=== PATIENT | male | born 1950 | race Caucasian/White ===

== ENCOUNTER 2018-06-16 18:02 | Inpatient (IN) | payer OTHER, MEDICARE ==
[~2018-06-16] VITALS: Ht 172.7 cm; Wt 83.9 kg
[2018-06-16] MEDS ORDERED: ONDANSETRON 4 MG/2 ML VIAL ONE (18:59)
[2018-06-16] MEDS ORDERED: MORPHINE SULFATE 4 MG/1 ML DISP.SYRIN ONE (18:59)
[2018-06-16] MEDS ORDERED: ONDANSETRON IV *ER 4 MG/2 ML VIAL IV ONE (19:00)
[2018-06-16] MEDS ORDERED: MORPHINE SULFATE 2 MG/1 ML DISP.SYRIN IV ONE (19:00)
[2018-06-16] MEDS ORDERED: VANCOMYCIN IV 200 ML ONE (19:00)
[2018-06-16] MEDS ORDERED: VANCOMYCIN IV 1,000 MG in IV DEXTROSE 5% 250 ML IV ONE (19:00)
--- NOTE | 2018-06-16 19:12 | NUR ---
SBAR to ABBIE Peña, still for admission to 2nd floor@this time
--- NOTE | 2018-06-16 19:20 | NUR ---
PT IN BED RESTING QUIETLY WITH PT'S DAUGHTER AT BEDSIDE. PT IS AAOX4. PT IS CALM AND COOPERATIVE. PT IS POSITIONED FOR COMFORT. UPON INITIAL ASSESSMENT, SKIN BREAKDOWN, MILD SWELLING AND DISCOLORATION NOTED ON TOES OF LEFT FOOT. PAIN AT LEVEL 4. NO SIGNS OF DISTRESS WITNESSED AT THIS TIME.
[2018-06-16 19:23] LABS: BASOPHILS # (AUTO) 0.1 K/uL (0.0-8.0); BASOPHILS % (AUTO) 0.4 % (0.0-2.0); EOSINOPHILS % (AUTO) 0.1 % (0.0-7.0); HEMATOCRIT 28.4 % (36.7-47.1); HEMOGLOBIN 9.8 g/dL (12.5-16.3); LYMPHOCYTES # (AUTO) 1.2 K/uL (20.0-40.0); LYMPHOCYTES % (AUTO) 9.2 % (20.5-51.5); MEAN CORPUSCULAR HEMOGLOBIN 29.9 uug (23.8-33.4); MEAN CORPUSCULAR HGB CONC 35 g/dL (32.5-36.3); MEAN CORPUSCULAR VOLUME 86.3 fL (73.0-96.2); MONOCYTES % (AUTO) 7.6 % (0.0-11.0); NEUTROPHILS # (AUTO) 10.4 K/uL (1.8-8.9); NEUTROPHILS % (AUTO) 82.7 % (38.5-71.5); PLATELET COUNT (AUTO) 325 K/uL (152-348); RED BLOOD CELL COUNT(AUTO) 3.29 MIL/uL (4.06-5.63); WHITE BLOOD COUNT (AUTO) 12.6 K/uL (3.6-10.2)
[2018-06-16 19:31] LABS: CREATININE 1.5 mg/dL (0.6-1.3); POTASSIUM 3.6 mmol/L (3.5-5.1)
[2018-06-16 19:47] LABS: BILIRUBIN,DIRECT 0.1 mg/dL (0.0-0.2); BILIRUBIN,TOTAL 0.5 mg/dL (0.2-1.0); TOTAL PROTEIN, SERUM 7.4 g/dL (6.4-8.2)
--- NOTE | 2018-06-16 20:30 | NUR ---
REPORT GIVEN TO [facility] NURSE, MASON
--- NOTE | 2018-06-16 20:55 | NUR ---
Pt. admitted to [facility], under care of Dr. NI Belongs List completed
[2018-06-16 21:10] VITALS: BP 155/65
[2018-06-16] MEDS ORDERED: ZOLPIDEM 5 MG TABLET PO PRN (21:15)
[2018-06-16] MEDS ORDERED: INSULIN REGULAR, HUMAN 300 UNIT/3 ML VIAL SQ PRN (21:15)
[2018-06-16] MEDS ORDERED: CLONIDINE HCL 0.1 MG TABLET PO PRN (21:15)
[2018-06-16] MEDS ORDERED: DEXTROSE 50% 50 ML DISP.SYRIN IV PRN (21:15)
[2018-06-16] MEDS ORDERED: MORPHINE SULFATE 2 MG/1 ML DISP.SYRIN IV PRN (21:15)
[2018-06-16] MEDS ORDERED: ONDANSETRON 4 MG/2 ML VIAL IV PRN (21:15)
[2018-06-16] MEDS ORDERED: ENOXAPARIN SODIUM 30 MG/0.3 ML DISP.SYRIN SUBCUT SCH (21:15)
[2018-06-16] MEDS ORDERED: CLIN300C11 PO (21:22)
[2018-06-16] MEDS ORDERED: MUPI22OI2 TP (21:22)
[2018-06-16] MEDS ORDERED: ROSU20TA PO (21:22)
[2018-06-16] MEDS ORDERED: ACET250T9 PO (21:22)
[2018-06-16] MEDS ORDERED: LISI10TA5 PO (21:23)
[2018-06-16] MEDS ORDERED: LATA2.5D2 EACHEYE (21:23)
[2018-06-16] MEDS ORDERED: PILO15DR6 LEFTEYE (21:23)
[2018-06-16] MEDS ORDERED: BRIM5DRO3 OP (21:23)
[2018-06-16] MEDS ORDERED: ASPI-605 PO (21:23)
[2018-06-16] MEDS ORDERED: GLIP1TAB6 PO (21:23)
[2018-06-16] MEDS ORDERED: LINA5TAB PO (21:23)
[2018-06-16] MEDS ORDERED: EZET10TA13 PO (21:23)
[2018-06-16] MEDS ORDERED: HALO15OI4 TP (21:23)
[2018-06-16] MEDS ORDERED: IBUP-1953 PO (21:24)
--- NOTE | 2018-06-16 22:00 | NUR ---
Per pt Bactroban ordered for foot by primary physician on 06/15/18.
[2018-06-16] MEDS ORDERED: PIPERACILLIN/TAZO 2.25 GM VIAL ONE (23:14)
[2018-06-16] MEDS: ENOXAPARIN SODIUM 40 MG/0.4 ML DISP.SYRIN SQ SCH (23:45)
[2018-06-17] MEDS ORDERED: PIPERACILLIN SODIUM/TAZO 3.375 GM VIAL ONE (00:06)
[2018-06-17 00:09] VITALS: BP 114/43
[2018-06-17] MEDS: TAZOBACTAM IV SCH ×6 (00:35→23:19)
[2018-06-17] MEDS: PIPERACILLIN SODIUM IV SCH ×6 (00:35→23:19)
[2018-06-17] MEDS: PREMIXED IV SCH ×6 (00:35→23:19)
[2018-06-17 04:52] VITALS: BP 120/50
[2018-06-17 05:57] LABS: BILIRUBIN,TOTAL 0.6 mg/dL (0.2-1.0); CREATININE 1.4 mg/dL (0.6-1.3); MAGNESIUM 1.6 mg/dL (1.8-2.4); PHOSPHOROUS 2.8 mg/dL (2.5-4.9); POTASSIUM 3.8 mmol/L (3.5-5.1); TOTAL PROTEIN, SERUM 6.7 g/dL (6.4-8.2)
--- NOTE | 2018-06-17 05:59 | NUR ---
PT SLEPT WELL THROUGH THE NIGHT AND WAS EASILY AWOKEN, PT DENIED HAVING ANY PAIN OR DIFFICULTY BREATHING. PT'S FOOT IS SLIGHTLY LESS SWOLLEN THIS MORNING COMPARED TO WHEN HE WAS ADMITTED. DRESSING IS DRY CLEAN AND INTACT. PT IS SINUS RHYTHM ON THE MONITOR. ALL NEEDS MET, SAFETY MEASURES ARE IN PLACE, CALL LIGHT WITHIN REACH, BED ALARM IS ON.
[2018-06-17 06:05] LABS: BASOPHILS # (AUTO) 0.1 K/uL (0.0-8.0); BASOPHILS % (AUTO) 0.5 % (0.0-2.0); EOSINOPHILS # (AUTO) 0.2 K/uL (0.0-0.7); EOSINOPHILS % (AUTO) 1.6 % (0.0-7.0); HEMATOCRIT 26.9 % (36.7-47.1); HEMOGLOBIN 9.5 g/dL (12.5-16.3); LYMPHOCYTES # (AUTO) 1.6 K/uL (20.0-40.0); LYMPHOCYTES % (AUTO) 17.2 % (20.5-51.5); MEAN CORPUSCULAR HEMOGLOBIN 30.6 uug (23.8-33.4); MEAN CORPUSCULAR HGB CONC 35 g/dL (32.5-36.3); MEAN CORPUSCULAR VOLUME 86.4 fL (73.0-96.2); MONOCYTES % (AUTO) 10.2 % (0.0-11.0); NEUTROPHILS # (AUTO) 6.6 K/uL (1.8-8.9); NEUTROPHILS % (AUTO) 70.5 % (38.5-71.5); PLATELET COUNT (AUTO) 287 K/uL (152-348); RED BLOOD CELL COUNT(AUTO) 3.12 MIL/uL (4.06-5.63); WHITE BLOOD COUNT (AUTO) 9.4 K/uL (3.6-10.2)
[2018-06-17] MEDS: PANTOPRAZOLE SODIUM 40 MG TABLET.DR PO SCH (06:10)
[2018-06-17] MEDS ORDERED: BLOOD SUGAR DIAGNOSTIC 1 EACH STRIP VI SCH (07:30)
[2018-06-17 07:55] LABS: THYROID STIMULATING HORMONE 2.73 mIU/mL (0.358-3.740)
[2018-06-17] MEDS ORDERED: MORPHINE SULFATE 4 MG/1 ML DISP.SYRIN IV PRN (08:15)
[2018-06-17] MEDS: ASPIRIN EC 81 MG TABLET.DR PO SCH (08:36)
[2018-06-17] MEDS: ACIDOPHILUS/BULGARICUS CHEW TAB PO SCH ×2 (08:36→16:10)
[2018-06-17] MEDS: ASCORBIC ACID 500 MG TABLET PO SCH (08:36)
[2018-06-17] MEDS: EZETIMIBE 10 MG TABLET PO SCH (08:36)
[2018-06-17] MEDS: LINAGLIPTIN 5 MG TABLET PO SCH (08:36)
[2018-06-17] MEDS: MULTIVITAMINS,THERAPEUTIC TABLET PO SCH (08:36)
[2018-06-17] MEDS: ZINC SULFATE 220 MG CAPSULE PO SCH (08:36)
[2018-06-17] MEDS ORDERED: PILOCARPINE 1% OPHT DROP 15 ML BOTTLE LEFTEYE SCH ×2 (09:00)
[2018-06-17] MEDS ORDERED: ACETAzolamide 250 MG TABLET PO SCH (09:00)
[2018-06-17] MEDS ORDERED: MUPIROCIN 2% OINT 22 GM TUBE TP SCH (09:00)
[2018-06-17] MEDS ORDERED: BRIMONIDINE-P 0.1% OPHTH DROP 5 ML DROPS OP SCH ×2 (09:00)
[2018-06-17] MEDS ORDERED: DEXTROSE 50% 50 ML DISP.SYRIN IV PRN (10:30)
[2018-06-17] MEDS: MAGNESIUM SULFATE/D5W 100 ML IV SCH ×2 (10:47→15:56)
[2018-06-17] MEDS: FERROUS SULFATE 325 MG TABEC PO SCH ×2 (10:52→21:33)
[2018-06-17 11:02] VITALS: BP 125/42
[2018-06-17] MEDS ORDERED: BRIM10DR6 EACHEYE (11:53)
[2018-06-17] MEDS ORDERED: PILO15DR36 OP (11:58)
[2018-06-17] MEDS: MUPIROCIN 2% OINT 22 GM TUBE TP SCH ×3 (12:00→21:34)
[2018-06-17] MEDS ORDERED: VANCOMYCIN IV 1,500 MG in IV DEXTROSE 5% 500 ML IV ONE (12:00)
[2018-06-17] MEDS: BLOOD SUGAR DIAGNOSTIC 1 EACH STRIP VI SCH ×3 (12:08→21:30)
[2018-06-17] MEDS: INSULIN REGULAR, HUMAN 300 UNIT/3 ML VIAL SQ PRN ×2 (12:14→17:01)
--- NOTE | 2018-06-17 12:17 | NUR ---
CLINICAL PHARMACY NOTE: VANCOMYCIN PHARMACY TO DOSE Subjective: To start vancomycin in this 68 y/o male for cellulitis Objective: weight 83.9 kg height 172.7 cm BUN 19 Scr 1.4 Wbc 9.4 temp 98.4 Vanco random level: 7.5 (with am labs) Assessment/Plan Due to unstable srcr, will dose by fall off level. Patient received vanco 1gm IVPB x1 in ED on 06/16 at 1900. Since vanco random level is 7.5 mcg/ml with am labs, will give vanco 1500mg IVPB x1 today. Will check srcr in am & decide when to order next random level for further dosing. Will follow
[2018-06-17] MEDS: PILOCARPINE 4% LEFTEYE SCH ×3 (13:00→21:34)
--- NOTE | 2018-06-17 15:15 | NUR ---
PATIENT TRANSPORTED TO RADIOLOGY VIA WHEELCHAIR. PT ALERT, IN NO DISTRESS.
[2018-06-17 15:50] VITALS: BP 120/41
--- NOTE | 2018-06-17 16:00 | NUR ---
RN BACK FROM LUNCH BREAK, PER STAFF, PATIENT ARRIVED FROM RADIOLOGY AT 1545. PT ALERT, RESTING IN BED.
[2018-06-17 16:19] LABS: *BILIRUBIN,URIN NEGATIVE (NEGATIVE); *BLOOD, URINE NEGATIVE (NEGATIVE); *CLARITY,URINE CLEAR (CLEAR); *COLOR,URINE YELLOW (YELLOW); *KETONES,URINE NEGATIVE (NEGATIVE); *PROTEIN,URINE TRACE (NEGATIVE); *UROBILINOGEN,URINE 0.2 E.U./dl (NORMAL); LEUKOCYTE ESTERASE ,URINE NEGATIVE (NEGATIVE); NITRITE, URINE NEGATIVE (NEGATIVE); UGLUCOSE NEGATIVE (NEGATIVE)
[2018-06-17 16:27] LABS: *URINE TOTAL PROTEIN RANDOM 44.3 mg/dL (<150/24HR)
[2018-06-17 16:34] LABS: COARSE GRANULAR CASTS,URINE 0-3 /LPF; MUCUS,URINE MODERATE /LPF (0-FEW); URINE AMORPHOUS PHOSPHATES FEW /HPF; WBC,URINE 0-3 /HPF (0-3)
--- NOTE | 2018-06-17 17:51 | NUR ---
PATIENT RESTING IN BED, IN NO DISTRESS. PATIENT IS PLEASANT AND APPRECIATIVE. LEFT FOOT NOTED WITH SWELLING AND REDNESS, SKIN CARE PROVIDED, PENDING WOUND CARE CONSULT. IV ANTIBIOTICS ADMINISTERED ORDERED, NO S/S OF ADVERSE REACTION NOTED. ACCUCHECKS DONE ORDERED, NO S/S OF HYPO/HYPERGLYCEMIA NOTED. ASSISTED PATIENT WITH TOILETING NEEDS. SAFETY MEASURES IN PLACE.
[2018-06-17 19:00] VITALS: BP 107/44
[2018-06-17] MEDS: ENOXAPARIN SODIUM 40 MG/0.4 ML DISP.SYRIN SQ SCH (21:32)
[2018-06-17] MEDS: INSULIN REGULAR, HUMAN 300 UNITS/3 ML VIAL SQ PRN (21:32)
[2018-06-17] MEDS: DOCUSATE SODIUM 100 MG CAPSULE PO SCH (21:33)
[2018-06-18] VITALS: BP 106/47
[2018-06-18 04:00] VITALS: BP 125/58
[2018-06-18 05:47] LABS: BASOPHILS # (AUTO) 0.1 K/uL (0.0-8.0); BASOPHILS % (AUTO) 0.9 % (0.0-2.0); EOSINOPHILS # (AUTO) 0.2 K/uL (0.0-0.7); EOSINOPHILS % (AUTO) 1.9 % (0.0-7.0); HEMOGLOBIN 10.4 g/dL (12.5-16.3); LYMPHOCYTES # (AUTO) 1.1 K/uL (20.0-40.0); LYMPHOCYTES % (AUTO) 12.9 % (20.5-51.5); MEAN CORPUSCULAR HEMOGLOBIN 30.3 uug (23.8-33.4); MEAN CORPUSCULAR HGB CONC 35 g/dL (32.5-36.3); MEAN CORPUSCULAR VOLUME 87.4 fL (73.0-96.2); MONOCYTES # (AUTO) 0.8 K/uL (2.0-10.0); MONOCYTES % (AUTO) 8.7 % (0.0-11.0); NEUTROPHILS # (AUTO) 6.7 K/uL (1.8-8.9); NEUTROPHILS % (AUTO) 75.6 % (38.5-71.5); PLATELET COUNT (AUTO) 320 K/uL (152-348); RED BLOOD CELL COUNT(AUTO) 3.43 MIL/uL (4.06-5.63); WHITE BLOOD COUNT (AUTO) 8.8 K/uL (3.6-10.2)
[2018-06-18 06:10] LABS: BILIRUBIN,TOTAL 0.4 mg/dL (0.2-1.0); CREATININE 1.5 mg/dL (0.6-1.3); PHOSPHOROUS 3.4 mg/dL (2.5-4.9); POTASSIUM 3.7 mmol/L (3.5-5.1)
[2018-06-18] MEDS: TAZOBACTAM IV SCH ×4 (06:26→23:55)
[2018-06-18] MEDS: PIPERACILLIN SODIUM IV SCH ×4 (06:26→23:55)
[2018-06-18] MEDS: PANTOPRAZOLE SODIUM 40 MG TABLET.DR PO SCH (06:26)
[2018-06-18] MEDS: PREMIXED IV SCH ×4 (06:26→23:55)
[2018-06-18] MEDS: BLOOD SUGAR DIAGNOSTIC 1 EACH STRIP VI SCH ×4 (06:38→20:49)
[2018-06-18] MEDS ORDERED: GADODIAMIDE 2.5 MMOL/5 ML VIAL ONE (07:53)
[2018-06-18] MEDS ORDERED: GADODIAMIDE 5 MMOL/10 ML VIAL ONE (07:53)
[2018-06-18] MEDS: ZINC SULFATE 220 MG CAPSULE PO SCH (09:16)
[2018-06-18] MEDS: ACIDOPHILUS/BULGARICUS CHEW TAB PO SCH ×2 (09:16→16:36)
[2018-06-18] MEDS: ASPIRIN EC 81 MG TABLET.DR PO SCH (09:16)
[2018-06-18] MEDS: MULTIVITAMINS,THERAPEUTIC TABLET PO SCH (09:17)
[2018-06-18] MEDS: EZETIMIBE 10 MG TABLET PO SCH (09:17)
[2018-06-18] MEDS: LINAGLIPTIN 5 MG TABLET PO SCH (09:17)
[2018-06-18] MEDS: ASCORBIC ACID 500 MG TABLET PO SCH (09:17)
[2018-06-18] MEDS: FERROUS SULFATE 325 MG TABEC PO SCH ×2 (09:18→20:49)
[2018-06-18] MEDS: MUPIROCIN 2% OINT 22 GM TUBE TP SCH ×2 (09:19→20:48)
[2018-06-18] MEDS: PILOCARPINE 4% LEFTEYE SCH ×4 (09:22→20:48)
--- NOTE | 2018-06-18 09:30 | NUR ---
PT ALERT ORIENTED X 4, RECEIVED CONSENT FOR DEBRIDEMENT. SWOLLEN LEFT FOOT, 4TH TOE RED AND BLACK. PT TOLERATED DEBRIDEMENT BY DOCTOR WALLACE, PLATE SHOP HELPER. WOUND CARE DRESSING DONE BY DOCTOR WALLACE.
[2018-06-18 11:30] VITALS: BP 150/67
--- NOTE | 2018-06-18 12:00 | NUR ---
PT ALERT AND ORIENTED X4. PT PICKED UP BY EMT TO [facility] FOR MRI. MRI CHECKLIST DONE. PT IV SHOWS NO SIGNS OF SWELLING AND REDNESS. IV PATENT. 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
[2018-06-18] MEDS: INSULIN REGULAR, HUMAN 300 UNIT/3 ML VIAL SQ PRN ×2 (12:04→16:36)
--- NOTE | 2018-06-18 12:33 | NUR ---
CLINICAL PHARMACY NOTE: VANCOMYCIN PHARMACY TO DOSE Subjective: To continue vancomycin in this 68 y/o male for cellulitis Objective: weight 83.9 kg height 172.7 cm BUN 17 Scr 1.5 Wbc 8.8 temp 97.9 Vanco random level: 9.9 (drawn at noon) Assessment/Plan Since srcr has been stable around 1.4-1.5, will start vanco 1250mg IVPB q22h for predicted vanco trough level of 15.5 mcg/ml at steady state. 1st dose is due today at 1300. Plan to draw vanco trough level before 4th dose (not yet ordered). Will monitor srcr & adjust the dose if needed. Will follow
--- NOTE | 2018-06-18 12:55 | NUR ---
WOUND CARE CONSULT WOUND CARE RECEIVED CONSULT FOR OPEN WOUND ON LEFT TOES. WOUND CARE WILL DEFER CONSULT AND ALL TREATMENT PLANS TO PODIATRY PODIATRY IS CURRENTLY FOLLOWING. PATIENT WITH RADHA A 21. WILL SEE PRN.
[2018-06-18] MEDS ORDERED: VANCOMYCIN IV 1,250 MG in IV DEXTROSE 5% 500 ML IV SCH (13:00)
[2018-06-18 15:15] VITALS: BP 135/94
[2018-06-18] MEDS ORDERED: hydrALAZINE HCL 25 MG TABLET PO PRN (16:15)
--- NOTE | 2018-06-18 17:00 | NUR ---
PT ARRIVED BACK FROM MRI. VITAL SIGNS STABLE.
--- NOTE | 2018-06-18 18:40 | NUR ---
PT NO ACUTE DISTRESS. PT DENIES ANY COMPLAINTS OF PAIN.
[2018-06-18 19:00] VITALS: BP 116/54
[2018-06-18] MEDS: ATORVASTATIN 40 MG TABLET PO SCH (20:49)
[2018-06-18] MEDS: DOCUSATE SODIUM 100 MG CAPSULE PO SCH (20:49)
[2018-06-18] MEDS: INSULIN REGULAR, HUMAN 300 UNITS/3 ML VIAL SQ PRN (20:58)
[2018-06-18] MEDS: ENOXAPARIN SODIUM 40 MG/0.4 ML DISP.SYRIN SQ SCH (20:58)
--- NOTE | 2018-06-18 21:46 | NUR ---
Received pt at the beginning of shift resting in bed. AAO x4. Family was at bedside. Farsi speaking, able to make needs known. All meds given as ordered. Accucheck 165, insulin coverage given. No acute distress noted. No c/o pain or discomfort. Safety measures maintained. Call light and personal belongings within reach. Will continue to monitor.
[2018-06-19 04:00] VITALS: BP 117/45
[2018-06-19] MEDS: TAZOBACTAM IV SCH ×4 (05:11→23:15)
[2018-06-19] MEDS: PIPERACILLIN SODIUM IV SCH ×4 (05:11→23:15)
[2018-06-19] MEDS: PREMIXED IV SCH ×4 (05:11→23:15)
--- NOTE | 2018-06-19 05:17 | NUR ---
Pt slept comfortably t/o the night. No BM yet, assisted to the bathroom as needed. Compliant with plan of care. Morning vital sign stable. All needs assisted to promptly. Will continue to monitor.
[2018-06-19 06:16] LABS: BASOPHILS # (AUTO) 0.1 K/uL (0.0-8.0); EOSINOPHILS # (AUTO) 0.2 K/uL (0.0-0.7); EOSINOPHILS % (AUTO) 2.6 % (0.0-7.0); HEMATOCRIT 31.5 % (36.7-47.1); HEMOGLOBIN 10.8 g/dL (12.5-16.3); LYMPHOCYTES # (AUTO) 1.6 K/uL (20.0-40.0); MEAN CORPUSCULAR HEMOGLOBIN 29.7 uug (23.8-33.4); MEAN CORPUSCULAR HGB CONC 34 g/dL (32.5-36.3); MEAN CORPUSCULAR VOLUME 86.6 fL (73.0-96.2); MONOCYTES # (AUTO) 0.8 K/uL (2.0-10.0); MONOCYTES % (AUTO) 8.3 % (0.0-11.0); NEUTROPHILS # (AUTO) 6.6 K/uL (1.8-8.9); NEUTROPHILS % (AUTO) 71.1 % (38.5-71.5); PLATELET COUNT (AUTO) 355 K/uL (152-348); RED BLOOD CELL COUNT(AUTO) 3.64 MIL/uL (4.06-5.63); WHITE BLOOD COUNT (AUTO) 9.3 K/uL (3.6-10.2)
[2018-06-19 06:28] LABS: BILIRUBIN,TOTAL 0.4 mg/dL (0.2-1.0); CREATININE 1.6 mg/dL (0.6-1.3); MAGNESIUM 1.8 mg/dL (1.8-2.4); PHOSPHOROUS 3.8 mg/dL (2.5-4.9); POTASSIUM 3.7 mmol/L (3.5-5.1); TOTAL PROTEIN, SERUM 7.2 g/dL (6.4-8.2)
[2018-06-19] MEDS: PANTOPRAZOLE SODIUM 40 MG TABLET.DR PO SCH (06:41)
[2018-06-19] MEDS: BLOOD SUGAR DIAGNOSTIC 1 EACH STRIP VI SCH ×4 (06:41→20:54)
--- NOTE | 2018-06-19 07:30 | NUR ---
patient resting comfortably in bed. no signs of distress. left foot wrapped due to cellulitis, will provide wound care. bed alarm on, call light within reach of patient. bed in locked/low position, side rails up x2. will monitor throughout shift.
--- NOTE | 2018-06-19 08:00 | NUR ---
PATIENT FOUND SITTING ON THE FLOOR, WITH UPPER BODY RESTING ON BED. PATIENT PLACED BACK INTO BED, NO BRUISING NOTED. PATIENT DOES NOT COMPLAIN OF PAIN, HEAD CHECKED. MD NOTIFIED OF INCIDENT, NO ORDERS OBTAINED. INCIDENT REPORT ENTERED. PATIENT IN STABLE CONDITION, NO SIGNS OF DISTRESS. Addendum: 06/19/18 at 1814 by JOVANI FORD RN INCORRECT PATIENT - PLEASE DISREGARD.
[2018-06-19] MEDS: ACIDOPHILUS/BULGARICUS CHEW TAB PO SCH ×2 (08:46→17:37)
[2018-06-19] MEDS: ASCORBIC ACID 500 MG TABLET PO SCH (08:46)
[2018-06-19] MEDS: FERROUS SULFATE 325 MG TABEC PO SCH ×2 (08:46→20:48)
[2018-06-19] MEDS: ASPIRIN EC 81 MG TABLET.DR PO SCH (08:46)
[2018-06-19] MEDS: ZINC SULFATE 220 MG CAPSULE PO SCH (08:46)
[2018-06-19] MEDS: LINAGLIPTIN 5 MG TABLET PO SCH (08:46)
[2018-06-19] MEDS: EZETIMIBE 10 MG TABLET PO SCH (08:46)
[2018-06-19] MEDS: MULTIVITAMINS,THERAPEUTIC TABLET PO SCH (08:46)
[2018-06-19] MEDS: CADEXOMER IODINE 40 GM TUBE TOP SCH (08:47)
[2018-06-19] MEDS: MUPIROCIN 2% OINT 22 GM TUBE TP SCH ×2 (08:47→21:42)
[2018-06-19] MEDS: PILOCARPINE 4% LEFTEYE SCH ×4 (08:49→21:42)
[2018-06-19] MEDS: INSULIN REGULAR, HUMAN 300 UNIT/3 ML VIAL SQ PRN ×3 (11:22→20:57)
[2018-06-19 11:36] VITALS: BP 119/55
[2018-06-19 16:00] VITALS: BP 122/66
--- NOTE | 2018-06-19 16:04 | NUR ---
CLINICAL PHARMACY NOTE: VANCOMYCIN PHARMACY TO DOSE Subjective: To continue vancomycin in this 68 y/o male for cellulitis Objective: weight 83.9 kg height 172.7 cm BUN 14 Scr 1.6 Wbc 9.3 temp 98.7 Vanco random level: 11.1 (drawn at 1530) Assessment/Plan Since srcr has increased (unstable), will start dosing by fall off level. Since vanco random level is 11.1, will give a dose of vanco 1250 mg IVPB x1 now. Pharmacy shall check srcr in am & decide when to order next random level for further dosing. Will follow
[2018-06-19] MEDS ORDERED: VANCOMYCIN IV 1 G in PREMIXED 0 EACH IV ONE (16:30)
[2018-06-19] MEDS ORDERED: VANCOMYCIN IV 1,250 MG in IV DEXTROSE 5% 500 ML IV ONE (17:00)
--- NOTE | 2018-06-19 18:14 | NUR ---
PATIENT AGREES TO LEFT FOOT FOURTH TOE AMPUTATION SURGICAL PROCEDURE. NO SCHEDULE FOR SURGERY YET DUE TO CONFUSION TO WHICH STRETCHING MACHINE OPERATOR WILL BE DOING THE PROCEDURE. EM, THE CNO WILL RESOLVE THE SITUATION. THEN PLAN FOR SURGERY CAN PROCEED.
--- NOTE | 2018-06-19 19:10 | NUR ---
RECEIVED PT AWAKE ON BED, AAOX4, NO SIGNS OF ACUTE DISTRESS AT THIS TIME.IV SITE ON LFA, PATENT AND INTACT. PER MORNING SHIFT NURSE, FAMILY HAS BEEN INFORMED ABOUT SCHEDULED SURGERY. INSTRUCTED PT TO BE ON NPO PER MD ORDERS FOR TOMORROWS SX PROCEDURE, PT VERBALIZED UNDERSTANDING. SAFETY MEASURES INITIATED, CALL LAM WITHIN REACH.
[2018-06-19 19:23] VITALS: BP 131/51
[2018-06-19] MEDS: DOCUSATE SODIUM 100 MG CAPSULE PO SCH (20:48)
[2018-06-19] MEDS: ATORVASTATIN 40 MG TABLET PO SCH (20:48)
[2018-06-19] MEDS: ENOXAPARIN SODIUM 40 MG/0.4 ML DISP.SYRIN SQ SCH (21:00)
[2018-06-20 03:32] VITALS: BP 138/51
[2018-06-20] MEDS: TAZOBACTAM IV SCH ×3 (05:18→17:01)
[2018-06-20] MEDS: PREMIXED IV SCH ×3 (05:18→17:01)
[2018-06-20] MEDS: PIPERACILLIN SODIUM IV SCH ×3 (05:18→17:01)
[2018-06-20] MEDS: BLOOD SUGAR DIAGNOSTIC 1 EACH STRIP VI SCH ×4 (06:37→20:50)
[2018-06-20] MEDS: PANTOPRAZOLE SODIUM 40 MG TABLET.DR PO SCH (06:43)
--- NOTE | 2018-06-20 06:43 | NUR ---
PT SLEPT THROUGHOUT THE SHIFT, NO COMPLAINTS OF DISCOMFORT. IV SITE ON LFA, PATENT AND INTACT. PT ON NPO, MADE AWARE OF PROCEDURE SCHEDULE. WOUND CARE TREATMENT DONE. SAFE ENVIRONMENT MAINTAINED AT ALL TIMES, CALL LAM WITHIN REACH.
[2018-06-20] MEDS ORDERED: IV NORMAL SALINE 1000 ML BAG IV ONE (07:35)
[2018-06-20] MEDS ORDERED: PROPOFOL 200 MG/20 ML BOTTLE IV ONE (07:35)
[2018-06-20] MEDS ORDERED: LIDOCAINE HCL 1% 20 ML VIAL MC ONE (07:35)
[2018-06-20 08:02] LABS: BASOPHILS # (AUTO) 0.1 K/uL (0.0-8.0); BASOPHILS % (AUTO) 1.2 % (0.0-2.0); EOSINOPHILS # (AUTO) 0.2 K/uL (0.0-0.7); EOSINOPHILS % (AUTO) 2.9 % (0.0-7.0); HEMATOCRIT 32.4 % (36.7-47.1); HEMOGLOBIN 10.9 g/dL (12.5-16.3); LYMPHOCYTES # (AUTO) 1.4 K/uL (20.0-40.0); LYMPHOCYTES % (AUTO) 16.6 % (20.5-51.5); MEAN CORPUSCULAR HEMOGLOBIN 29.4 uug (23.8-33.4); MEAN CORPUSCULAR HGB CONC 34 g/dL (32.5-36.3); MEAN CORPUSCULAR VOLUME 87.3 fL (73.0-96.2); MONOCYTES # (AUTO) 0.7 K/uL (2.0-10.0); MONOCYTES % (AUTO) 7.9 % (0.0-11.0); NEUTROPHILS % (AUTO) 71.4 % (38.5-71.5); PLATELET COUNT (AUTO) 379 K/uL (152-348); RED BLOOD CELL COUNT(AUTO) 3.71 MIL/uL (4.06-5.63); WHITE BLOOD COUNT (AUTO) 8.4 K/uL (3.6-10.2)
[2018-06-20 08:12] LABS: CREATININE 1.6 mg/dL (0.6-1.3); MAGNESIUM 1.7 mg/dL (1.8-2.4); PHOSPHOROUS 3.9 mg/dL (2.5-4.9); POTASSIUM 3.6 mmol/L (3.5-5.1)
[2018-06-20] MEDS: MULTIVITAMINS,THERAPEUTIC TABLET PO SCH (08:21)
[2018-06-20] MEDS: ACIDOPHILUS/BULGARICUS CHEW TAB PO SCH ×2 (08:21→16:59)
[2018-06-20] MEDS: LINAGLIPTIN 5 MG TABLET PO SCH (08:21)
[2018-06-20] MEDS: ASPIRIN EC 81 MG TABLET.DR PO SCH (08:21)
[2018-06-20] MEDS: FERROUS SULFATE 325 MG TABEC PO SCH ×2 (08:21→20:44)
[2018-06-20] MEDS: EZETIMIBE 10 MG TABLET PO SCH (08:22)
[2018-06-20] MEDS: ZINC SULFATE 220 MG CAPSULE PO SCH (08:23)
[2018-06-20] MEDS: ASCORBIC ACID 500 MG TABLET PO SCH (08:23)
[2018-06-20] MEDS: PILOCARPINE 4% LEFTEYE SCH ×4 (08:44→20:43)
[2018-06-20] MEDS: MUPIROCIN 2% OINT 22 GM TUBE TP SCH ×2 (08:45→22:16)
[2018-06-20] MEDS: CADEXOMER IODINE 40 GM TUBE TOP SCH (08:52)
[2018-06-20] MEDS ORDERED: MAGNESIUM SULFATE/D5W 100 ML IV SCH (10:00)
--- NOTE | 2018-06-20 10:48 | NUR ---
RECONFIRMED SIGNED CONSENT FORM. PATIENT VERBALIZED UNDERSTANDING REGARDING SCHEDULED PROCEDURE AT 1430. 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 DAUGHTER CONFIRMED PATIENT UNDERSTANDS PROCEDURE, FAMILY AT BEDSIDE.
[2018-06-20 11:13] VITALS: BP 133/67
[2018-06-20 11:45] LABS: *OCCULT BLOOD STOOL NEGATIVE (NEGATIVE)
[2018-06-20] MEDS ORDERED: POLYMYXIN B SULFATE 500,000 UNITS, BACITRACIN 50,000 UNITS, NORMAL SALINE 20 ML MC ONE ×3 (13:30)
[2018-06-20] MEDS ORDERED: BUPIVACAINE PF 0.5% 30 ML VIAL ONE (13:51)
[2018-06-20] MEDS ORDERED: LIDOCAINE HCL 1% 20 ML VIAL ONE (13:52)
--- NOTE | 2018-06-20 13:55 | NUR ---
PRE OP CHECKLIST DONE. PATIENT'S VS STABLE, AFEBRILE, NO C/O OF PAIN. PT KEPT NPO SINCE MIDNIGHT. ACCUCHECKS DONE ORDERED, NO HYPOGLYCEMIA NOTED. FAMILY AT BEDSIDE.
--- NOTE | 2018-06-20 14:07 | NUR ---
PATIENT PICKED UP BY OR FOR LEFT FOOT SURGERY. PT ALERT, IN NO DISTRESS. FAMILY PRESENT.
[2018-06-20] MEDS ORDERED: FENTANYL CITRATE 100 MCG/2 ML AMPUL ONE (14:41)
--- NOTE | 2018-06-20 15:02 | NUR ---
CLINICAL PHARMACY NOTE: VANCOMYCIN PHARMACY TO DOSE Subjective: To continue vancomycin in this 68 y/o male for cellulitis Objective: weight 83.9 kg height 172.7 cm BUN 18 Scr 1.6 Wbc 8.4 temp 98.4 Assessment/Plan Since srcr has increased (unstable), will continue dosing by fall off level. 1250mg was given yesterday at 1840. Pharmacy Next random level is on order today at 1600. Will follow the level for further dosing. Addendum: 06/20/18 at 1838 by KANE MCMAHON ADM VANCOMYCIN RANDOM LEVEL 11.6 @7936. PT S/P AMPUTATION OF GANGRENED TOE + OSTEOMYELITIS . WILL DOSE ANOTHER VANCO 1500 MG X 1 AND CK LEVEL TOMORROW ~1800
--- NOTE | 2018-06-20 16:36 | NUR ---
PATIENT BACK FROM SURGERY, VIA [facility]. Addendum: 06/20/18 at 1733 by KARYNA UP RN ADD: PATIENT WITH DRESSING ON THE LEFT FOOT, INTACT/CLEAN/DRY.
--- NOTE | 2018-06-20 16:45 | NUR ---
POST OP ORDER TAKEN AND CARRIED OUT.
--- NOTE | 2018-06-20 16:45 | NUR ---
NO WEIGHT BEARING ON THE LEFT FOOT ORDERED.
[2018-06-20 17:25] VITALS: BP 130/68
[2018-06-20] MEDS ORDERED: LEVOFLOXACIN 500 MG TABLET PO SCH (18:00)
[2018-06-20] MEDS ORDERED: LEVOFLOXACIN 500 MG TABLET PO ONE (18:15)
[2018-06-20] MEDS ORDERED: VANCOMYCIN IV 1,500 MG in IV DEXTROSE 5% 500 ML IV ONE (18:45)
--- NOTE | 2018-06-20 19:10 | NUR ---
RECEIVED PT ASLEEP ON BED, NO SIGNS OF RESPIRATORY DISTRESS OR ANY DISCOMFORT AT THIS TIME. IV SITE ON LFA, PATENT AND INTACT. NO WEIGHT BEARING ON LEFT FOOT IMPLEMENTED. SAFETY MEASURES INITIATED, CALL LAM WITHIN REACH.
[2018-06-20 19:26] VITALS: BP 130/56
[2018-06-20] MEDS: DOCUSATE SODIUM 100 MG CAPSULE PO SCH (20:43)
[2018-06-20] MEDS: ATORVASTATIN 40 MG TABLET PO SCH (20:44)
[2018-06-20] MEDS: ENOXAPARIN SODIUM 40 MG/0.4 ML DISP.SYRIN SQ SCH (20:56)
[2018-06-20] MEDS: INSULIN REGULAR, HUMAN 300 UNIT/3 ML VIAL SQ PRN (20:57)
[2018-06-21] MEDS: ACETAMINOPHEN 325 MG TABLET PO PRN ×2 (00:08→08:39)
[2018-06-21 03:35] VITALS: BP 121/59
[2018-06-21] MEDS: BLOOD SUGAR DIAGNOSTIC 1 EACH STRIP VI SCH ×4 (06:28→20:37)
[2018-06-21] MEDS: PANTOPRAZOLE SODIUM 40 MG TABLET.DR PO SCH (06:29)
[2018-06-21 06:35] LABS: BASOPHILS # (AUTO) 0.1 K/uL (0.0-8.0); BASOPHILS % (AUTO) 1.1 % (0.0-2.0); EOSINOPHILS # (AUTO) 0.2 K/uL (0.0-0.7); EOSINOPHILS % (AUTO) 3.2 % (0.0-7.0); HEMOGLOBIN 10.5 g/dL (12.5-16.3); LYMPHOCYTES # (AUTO) 1.3 K/uL (20.0-40.0); LYMPHOCYTES % (AUTO) 18.1 % (20.5-51.5); MEAN CORPUSCULAR HEMOGLOBIN 29.9 uug (23.8-33.4); MEAN CORPUSCULAR HGB CONC 35 g/dL (32.5-36.3); MEAN CORPUSCULAR VOLUME 85.8 fL (73.0-96.2); MONOCYTES # (AUTO) 0.6 K/uL (2.0-10.0); MONOCYTES % (AUTO) 8.4 % (0.0-11.0); NEUTROPHILS # (AUTO) 4.9 K/uL (1.8-8.9); NEUTROPHILS % (AUTO) 69.2 % (38.5-71.5); PLATELET COUNT (AUTO) 360 K/uL (152-348); WHITE BLOOD COUNT (AUTO) 7.1 K/uL (3.6-10.2)
--- NOTE | 2018-06-21 06:49 | NUR ---
PATIENT AWAKE ON BED, AAOX4, NO SIGNS OF DISTRESS NOTED AT THIS TIME. NO WEIGHT BEARING ON SX SITE MAINTAINED. SX DRESSING CLEAN, DRY AND INTACT. IV SITE ON RFA, PATENT AND INTACT. ABLE TO TOLERATE ORDERED ABX. SAFE ENVIRONMENT MAINTAINED AT ALL TIMES, CALL LAM WITHIN REACH.
[2018-06-21 06:52] LABS: CREATININE 1.5 mg/dL (0.6-1.3); MAGNESIUM 1.8 mg/dL (1.8-2.4); POTASSIUM 3.4 mmol/L (3.5-5.1)
[2018-06-21] MEDS: ACIDOPHILUS/BULGARICUS CHEW TAB PO SCH ×2 (08:31→17:04)
[2018-06-21] MEDS: EZETIMIBE 10 MG TABLET PO SCH (08:31)
[2018-06-21] MEDS: ASPIRIN EC 81 MG TABLET.DR PO SCH (08:31)
[2018-06-21] MEDS: PILOCARPINE 4% LEFTEYE SCH ×4 (08:31→20:29)
[2018-06-21] MEDS: LINAGLIPTIN 5 MG TABLET PO SCH (08:31)
[2018-06-21] MEDS: MULTIVITAMINS,THERAPEUTIC TABLET PO SCH (08:31)
[2018-06-21] MEDS: ASCORBIC ACID 500 MG TABLET PO SCH (08:31)
[2018-06-21] MEDS: FERROUS SULFATE 325 MG TABEC PO SCH ×2 (08:31→20:30)
[2018-06-21] MEDS: ZINC SULFATE 220 MG CAPSULE PO SCH (08:31)
[2018-06-21] MEDS: CADEXOMER IODINE 40 GM TUBE TOP SCH (08:32)
[2018-06-21] MEDS: MUPIROCIN 2% OINT 22 GM TUBE TP SCH ×2 (08:32→21:00)
[2018-06-21 11:40] VITALS: BP 103/67
[2018-06-21] MEDS: INSULIN REGULAR, HUMAN 300 UNIT/3 ML VIAL SQ PRN ×3 (11:47→20:42)
--- NOTE | 2018-06-21 13:20 | NUR ---
CLINICAL PHARMACY NOTE: VANCOMYCIN PHARMACY TO DOSE Subjective: To continue vancomycin in this 68 y/o male for cellulitis Objective: weight 83.9 kg height 172.7 cm BUN 21 Scr 1.5 Wbc 7.1 temp 98.6 Assessment/Plan Scr is elevated but stable, so will start Vancomycin 1500mg IV every 24hrs (second dose tonight at 2000) and draw trough by 4th dose(not ordered yet) for expected trough around 15. Will monitor daily.
[2018-06-21] MEDS ORDERED: POTASSIUM CHLORIDE 10 MEQ TAB.PRT.SR PO ONE (14:00)
[2018-06-21 15:02] VITALS: BP 126/63
[2018-06-21] MEDS ORDERED: LEVOFLOXACIN 250 MG TABLET PO SCH (18:00)
--- NOTE | 2018-06-21 18:00 | NUR ---
PATIENT ALERT, IN NO DISTRESS. DRESSING ON LEFT FOOT INTACT/CLEAN/DRY, NO BLEEDING NOTED. PATIENT NO C/O OF NUMBNESS TINGLING, ABLE TO WIGGLE TOES. LEFT FOOT OFFLOADED, NON WEIGHT BEARING. PAIN MANAGEMENT ORDERED. PT ABLE TO AMBULATE TO THE BATHROOM USING WALKER AND WITH ASSIST. SAFETY MEASURES IN PLACE. VS STABLE, AFEBRILE.
[2018-06-21 19:15] VITALS: BP 143/62
[2018-06-21] MEDS ORDERED: VANCOMYCIN IV 1,500 MG in IV DEXTROSE 5% 500 ML IV SCH (20:00)
[2018-06-21] MEDS: ATORVASTATIN 40 MG TABLET PO SCH (20:30)
[2018-06-21] MEDS: DOCUSATE SODIUM 100 MG CAPSULE PO SCH (20:30)
[2018-06-21] MEDS: ENOXAPARIN SODIUM 40 MG/0.4 ML DISP.SYRIN SQ SCH (20:32)
[2018-06-22 03:31] VITALS: BP 137/68
[2018-06-22] MEDS: PANTOPRAZOLE SODIUM 40 MG TABLET.DR PO SCH (06:13)
[2018-06-22] MEDS: BLOOD SUGAR DIAGNOSTIC 1 EACH STRIP VI SCH ×2 (06:18→11:25)
--- NOTE | 2018-06-22 06:28 | NUR ---
PT SLEPT THROUGHOUT THE SHIFT, DENIES ANY SOB OR PAIN. KEPT DRESSING INTACT, CLEAN AND DRY. NO WEIGHT BEARING ON SX SITE MAINTAINED. IV SITE ON RFA, PATENT AND INTACT. SAFE ENVIRONMENT MAINTAINED AT ALL TIMES, CALL LAM WITHIN REACH.
[2018-06-22 06:29] LABS: CREATININE 1.5 mg/dL (0.6-1.3); MAGNESIUM 1.8 mg/dL (1.8-2.4); PHOSPHOROUS 3.2 mg/dL (2.5-4.9); POTASSIUM 3.6 mmol/L (3.5-5.1)
[2018-06-22 06:45] LABS: BASOPHILS # (AUTO) 0.1 K/uL (0.0-8.0); BASOPHILS % (AUTO) 1.1 % (0.0-2.0); EOSINOPHILS # (AUTO) 0.2 K/uL (0.0-0.7); EOSINOPHILS % (AUTO) 2.3 % (0.0-7.0); LYMPHOCYTES # (AUTO) 1.8 K/uL (20.0-40.0); LYMPHOCYTES % (AUTO) 20.2 % (20.5-51.5); MEAN CORPUSCULAR HEMOGLOBIN 29.8 uug (23.8-33.4); MEAN CORPUSCULAR HGB CONC 35 g/dL (32.5-36.3); MEAN CORPUSCULAR VOLUME 85.9 fL (73.0-96.2); MONOCYTES # (AUTO) 0.8 K/uL (2.0-10.0); MONOCYTES % (AUTO) 8.9 % (0.0-11.0); NEUTROPHILS # (AUTO) 6.1 K/uL (1.8-8.9); NEUTROPHILS % (AUTO) 67.5 % (38.5-71.5); PLATELET COUNT (AUTO) 401 K/uL (152-348); RED BLOOD CELL COUNT(AUTO) 3.85 MIL/uL (4.06-5.63)
[2018-06-22 06:55] LABS: HEMATOCRIT 33.1 % (36.7-47.1); HEMOGLOBIN 11.5 g/dL (12.5-16.3)
[2018-06-22] MEDS: MULTIVITAMINS,THERAPEUTIC TABLET PO SCH (08:24)
[2018-06-22] MEDS: ZINC SULFATE 220 MG CAPSULE PO SCH (08:24)
[2018-06-22] MEDS: ACIDOPHILUS/BULGARICUS CHEW TAB PO SCH (08:25)
[2018-06-22] MEDS: EZETIMIBE 10 MG TABLET PO SCH (08:25)
[2018-06-22] MEDS: FERROUS SULFATE 325 MG TABEC PO SCH (08:25)
[2018-06-22] MEDS: ASPIRIN EC 81 MG TABLET.DR PO SCH (08:25)
[2018-06-22] MEDS: ASCORBIC ACID 500 MG TABLET PO SCH (08:25)
[2018-06-22] MEDS: LINAGLIPTIN 5 MG TABLET PO SCH (08:26)
[2018-06-22] MEDS: PILOCARPINE 4% LEFTEYE SCH ×2 (08:29→12:17)
[2018-06-22] MEDS: CADEXOMER IODINE 40 GM TUBE TOP SCH (08:31)
--- NOTE | 2018-06-22 08:51 | NUR ---
WOUND CARE PROVIDED, STITCHES INTACT, NO SIGNS OF REDNESS, PUSS OR PAIN. CONTINUE TO MONITOR PT.
[2018-06-22] MEDS: MUPIROCIN 2% OINT 22 GM TUBE TP SCH (09:06)
--- NOTE | 2018-06-22 10:35 | NUR ---
CLINICAL PHARMACY NOTE: VANCOMYCIN PHARMACY TO DOSE Subjective: To continue vancomycin in this 68 y/o male for cellulitis Objective: weight 83.9 kg height 172.7 cm BUN 19 Scr 1.5 Wbc 9.0 temp 98.4 Assessment/Plan Scr is elevated but stable, so will continue Vancomycin 1500mg IV every 24hrs (third dose tonight at 2000) and draw trough by 4th dose(not ordered yet) for expected trough around 15. Will monitor daily.
[2018-06-22] MEDS ORDERED: LEVO500T2 PO (10:50)
[2018-06-22] MEDS ORDERED: SULF1TAB48 PO (10:50)
[2018-06-22] MEDS: INSULIN REGULAR, HUMAN 300 UNIT/3 ML VIAL SQ PRN (11:27)
[2018-06-22 11:42] VITALS: BP 151/64
--- NOTE | 2018-06-22 13:10 | NUR ---
PT DC WITH ALL BELONGINGS, MEDICATIONS, PRESCRIPTIONS, AND EXIT CARE PACKET. PT STABLE TO DC. PT DC VIA PRIVATE CAR WITH DAUGHTER GRETEL. EDUCATION ABOUT WOUND CARE PROVIDED TO DAUGHTER AND PATIENT.
[2018-06-22 14:26] VITALS: BP 151/64
== END 2018-06-22 13:10 | disposition home health service (06) | DRG 314 ==
LOC: ER 18:05 → MED 20:47 → TELE 21:40 → MED 06-18 12:15
PROVIDERS: ADMIT Internal Medicine; ATTEND Internal Medicine
PROC: 0JBR0ZZ Excision of Left Foot Subcutaneous Tissue and Fascia, Open Approach (ICD-10-PCS; principal; 2018-06-18)
PROC: 0Y6W0Z0 Detachment at Left 4th Toe, Complete, Open Approach (ICD-10-PCS; 2018-06-20)
PROC: 0QBP0ZZ Excision of Left Metatarsal, Open Approach (ICD-10-PCS; 2018-06-20)
DX: E11.52 Type 2 diabetes mellitus with diabetic peripheral angiopathy with gangrene (principal); N17.0 Acute kidney failure with tubular necrosis; E44.0 Moderate protein-calorie malnutrition; I96 Gangrene, not elsewhere classified; E11.22 Type 2 diabetes mellitus with diabetic chronic kidney disease; E11.621 Type 2 diabetes mellitus with foot ulcer; L03.116 Cellulitis of left lower limb; E83.42 Hypomagnesemia; E87.1 Hypo-osmolality and hyponatremia; E11.65 Type 2 diabetes mellitus with hyperglycemia; I25.10 Atherosclerotic heart disease of native coronary artery without angina pectoris; I25.2 Old myocardial infarction; I12.9 Hypertensive chronic kidney disease with stage 1 through stage 4 chronic kidney disease, or unspecified chronic kidney disease; D63.1 Anemia in chronic kidney disease; E78.5 Hyperlipidemia, unspecified; E87.6 Hypokalemia; N18.9 Chronic kidney disease, unspecified; B35.1 Tinea unguium; E78.00 Pure hypercholesterolemia, unspecified; I44.0 Atrioventricular block, first degree; D50.9 Iron deficiency anemia, unspecified; L97.529 Non-pressure chronic ulcer of other part of left foot with unspecified severity; M19.079 Primary osteoarthritis, unspecified ankle and foot; E11.69 Type 2 diabetes mellitus with other specified complication; M86.8X7 Other osteomyelitis, ankle and foot; Z79.84 Long term (current) use of oral hypoglycemic drugs; Z79.4 Long term (current) use of insulin; I35.0 Nonrheumatic aortic (valve) stenosis; H40.9 Unspecified glaucoma; D72.820 Lymphocytosis (symptomatic); Z68.28 Body mass index [BMI] 28.0-28.9, adult
CPT/HCPCS: 36415; 70030-TC; 71045; 73630; 73700; 82378; 83550; 83605; 83735; 84100; 84156; 84300; 84443; 85025; 85730; 87040; 87070; 87075; 87086; 93005; 93307; A4217; A4649; A4663; J1650; J1815; J2270; J2405; J2543; J3010; J3370; J3475; J3490; J3590; J7030; J7040; J7060; J8499

== ENCOUNTER 2018-06-29 17:14 | Emergency (ER) | payer MEDICARE, OTHER ==
[~2018-06-29] VITALS: Ht 162.6 cm; Wt 81.6 kg
[~2018-06-29 17:14] MED LIST: ACET250T9 PO; ASPI-605 PO; BRIM10DR6 EACHEYE; EZET10TA13 PO; GLIP1TAB6 PO; HALO15OI4 TP; IBUP-1953 PO; LATA2.5D2 EACHEYE; LEVO500T2 PO; LINA5TAB PO; LISI10TA5 PO; MUPI22OI2 TP; PILO15DR36 OP; ROSU20TA PO; SULF1TAB48 PO
--- NOTE | 2018-06-29 17:15 | NUR ---
REDRESSED THE SURGICAL SITE WITH NON-ADHESSIVE AND WRAPPED THE SAME WAY IT WAS DRESSED, NEW HOSPITAL SOCKS PROVIDED TO WEAR. PT HAS AN APPT WITH HIS MD ON MONDAY.
--- NOTE | 2018-06-29 17:37 | NUR ---
Patient discharged to home in stable conditon. Written and verbal after care instructions given. Patient verbalizes understanding of instructions.PT WALKS IN STEADY GAIT. PT ACCOMPANIED BY .
== END 2018-06-29 17:40 | disposition home or self-care (01) ==
LOC: ER 17:16
DX: Z48.01 Encounter for change or removal of surgical wound dressing (principal); I25.10 Atherosclerotic heart disease of native coronary artery without angina pectoris; E11.9 Type 2 diabetes mellitus without complications
CPT/HCPCS: 99281; A4663